=== PATIENT | male | born 1995 | race Caucasian/White ===

== ENCOUNTER 2017-12-31 17:34 | Emergency (ER) | END 2017-12-31 19:17 | disposition home or self-care (01) ==

== ENCOUNTER 2018-06-23 12:02 | Emergency (ER) | payer OTHER ==
[~2018-06-23] VITALS: Ht 172.7 cm; Wt 89.9 kg
[~2018-06-23 12:02] MED LIST: AMOX500C2 PO; CYCL10TA7 PO; D-ME118S6 PO; IBUP-1542 PO; NAPR-985 PO
[2018-06-23 12:21] VITALS: BP 146/65; PULSE 57; RESP 20; Ht 172.7 cm; Wt 89.9 kg
[2018-06-23] MEDS ORDERED: FLUORESCEIN STRIP LEFT EYE ONE (14:30)
[2018-06-23] MEDS ORDERED: POLY10DR19 LEFT EYE (15:10)
--- NOTE | 2018-06-23 15:12 | ERD ---
ER Documentation Chief Complaint Chief Complaint c/o left eye redness x3 days HPI 22yo male presents for left eye redness times 3 days. He states that is associated irritation rated 3 out of 10, described as burning sensation. Denies any blurry vision. He states that he has foreign body sensation. Associated watery discharge with pus drainage at times. He is currently taking Clear Eyes eyedrops for itchiness [id number] with mild relief. Denies fevers or chills. Denies any ear pain or runny nose. No significant past medical history. ROS All systems reviewed and are negative except as per history of present illness. Medications Home Meds Active Scripts Polymyxin B Sulfate-TMP* (Polymyxin B-TMP Eye Drops*) 10 Ml Drops, 1 DROP LEFT EYE TID for conjuncitivitis for 7 Days, #1 BOTTLE Prov:FLAVIA AZAR DO 06/23/18 Naproxen* (Naprosyn*) 500 Mg Tablet, 500 MG PO BID PRN for PAIN AND/OR INFLAMMATION, #30 TAB Prov:GERARD RICHARDSON PA-C 12/31/17 Cyclobenzaprine Hcl* (Cyclobenzaprine Hcl*) 10 Mg Tablet, 10 MG PO TID, #15 TAB Prov:GERARD RICHARDSON PA-C 12/31/17 Dextromethorphan Hb-Promethazine Hcl (Promethazine DM Syrup) 180 Ml Syrup, 5 ML PO Q6H PRN for COUGH, #4 OZ Prov:JEREMY GUEVARA MD 06/14/15 Amoxicillin* (Amoxicillin*) 500 Mg Cap, 500 MG PO TID for 10 Days, CAP Prov:JEREMY GUEVARA MD 06/14/15 Ibuprofen* (Motrin*) 600 Mg Tab, 600 MG PO Q6, #14 TAB Prov:JEREMY GUEVARA MD 06/14/15 Allergies Allergies: Coded Allergies: No Known Allergy (Unverified , 06/14/15) PMhx/Soc Medical and Surgical Hx: pt denies Medical Hx, pt denies Surgical Hx History of Surgery: No Anesthesia Reaction: No Hx Neurological Disorder: No Hx Respiratory Disorders: Yes (ASTHMA) Hx Cardiac Disorders: No Hx Psychiatric Problems: No Hx Miscellaneous Medical Probl: No Hx Alcohol Use: No Hx Substance Use: No Hx Tobacco Use: No Smoking Status: Never smoker Physical Exam Vitals Vital Signs Date Temp Pulse Resp B/P (MAP) Pulse Ox O2 O2 Flow FiO2 Time Delivery Rate 06/23/18 97.4 57 20 146/65 98 12:21 (92) Physical Exam Const: No acute distress Head: Atraumatic Eyes: Left eye injections noted, EOMI, no pain with eye movement, PERRL bilateral ENT: Normal External Ears, Nose and Mouth. Neck: Full range of motion. No meningismus. Resp: Clear to auscultation bilaterally Cardio: Regular rate and rhythm, no murmurs Abd: Soft, non tender, non distended. Normal bowel sounds Skin: No petechiae or rashes Back: No midline or flank tenderness Ext: No cyanosis, or edema Neur: Awake and alert Psych: Normal Mood and Affect Results 24 hrs Current Medications Medications Dose Sig/Cathy Start Time Status Last (Trade) Ordered Route PRN Stop Time Admin Dose Reason Admin Fluorescein 1 strip ONCE ONCE 06/23/18 DC Sodium LEFT EYE 14:30 06/23/18 (Hvyyw-L-Vilu 14:31 p) Procedures/MDM Medical Decision Making: Differential diagnosis includes but not limited to viral conjunctivitis, bacterial conjunctivitis, allergic conjunctivitis, iritis, uveitis, glaucoma preseptal cellulitis, preseptal cellulitis Patient appeared well on physical exam. There was left eye injections noted. ED course: Fluorescein wood lap was done with no corneal abrasions or ulcerations noted Patient possibly has conjunctivitis possible bacterial given history of pus drainage. Prescription(s): Patient given prescription for supportive medication(s) and Polytrim eyedrop. Patient advised to follow up with PCP in 1-2 days. Patient advised to return to ED for new or worsening symptoms. Patient stable on discharge from the ED. Disclaimer: Inadvertent spelling and grammatical errors are likely due to EHR/dictation software use and do not reflect on the overall quality of patient care. Also, please note that the electronic time recorded on this note does not necessarily reflect the actual time of the patient encounter. Departure Diagnosis: Primary Impression: Conjunctivitis Conjunctivitis type: acute Acute conjunctivitis type: unspecified Laterality: left Qualified Codes: H10.32 - Unspecified acute conjunctivitis, left eye Condition: Fair Patient Instructions: Conjunctivitis Caused by Infection Additional Instructions: Call your primary care doctor TOMORROW for an appointment during the next 1-2 days.See the doctor sooner or return here if your condition worsens before your appointment time. FLAVIA AZAR DO Jun 23, 2018 15:12
== END 2018-06-23 15:29 | disposition home or self-care (01) ==
LOC: FTE 12:02
DX: H10.32 Unspecified acute conjunctivitis, left eye (principal); J45.909 Unspecified asthma, uncomplicated
CPT/HCPCS: Z7502; Z7610; 99283